=== PATIENT | male | born 1990 | race Caucasian/White ===

== ENCOUNTER 2018-03-03 16:33 | Emergency (ER) | payer SELFPAY ==
[~2018-03-03] VITALS: Ht 167.6 cm; Wt 59.0 kg
[2018-03-03 16:43] VITALS: BP 112/71
--- NOTE | 2018-03-03 17:01 | NUR ---
PT. CAME INTO THE ED DUE TO R SHOULDER PAIN AND BACK PAIN X 4 DAYS. PT. STATES " I WAS AT WORK PULLING HEAVY BOXES AND IT STARTED HURTING MY R SHOULDER DOWN TO MY BACK". 8/10 SHARP PAIN ON R SHOULDER THAT RADIATES DOWN TO HIS BACK. RR EVEN AND UNLABORED. ABLE TO AMBULATE STEADILY. ABLE TO RAISE HANDS BILAT. ER MD NOTIFIED . WILL CONTINUE TO MONITOR. SAFETY PRECAUTIONS IMPLEMENTED.
[2018-03-03] MEDS ORDERED: KETOROLAC 60 MG/2 ML VIAL IM ONE (17:30)
[2018-03-03 18:03] VITALS: BP 116/70
--- NOTE | 2018-03-03 18:03 | NUR ---
Patient discharged with v/s stable. Written and verbal after care instructions given and explained. Patient alert, oriented and verbalized understanding of instructions. Ambulatory with steady gait. All questions addressed prior to discharge. ID band removed. Patient advised to follow up with PMD. Rx of VALIUM, NORCO 5/325, AND MOTRIN 800MG given. Patient educated on indication of medication including possible reaction and side effects. Opportunity to ask questions provided and answered.
== END 2018-03-03 18:03 | disposition home or self-care (01) ==
LOC: MED 16:33
DX: M54.6 Pain in thoracic spine (principal); E78.5 Hyperlipidemia, unspecified
CPT/HCPCS: 81002; 96372; 99283; J1885

== ENCOUNTER 2018-06-02 10:18 | Emergency (ER) | payer SELFPAY ==
[~2018-06-02] VITALS: Ht 167.6 cm; Wt 61.2 kg
[2018-06-02 10:32] VITALS: BP 115/79
--- NOTE | 2018-06-02 10:35 | NUR ---
PT AMBULATES TO BED 11
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
--- NOTE | 2018-06-02 11:44 | NUR ---
Patient being evaluated by physician at bedside.
[2018-06-02] MEDS ORDERED: traMADol 50 MG TAB PO ONE (11:50)
[2018-06-02] MEDS ORDERED: IBUPROFEN 800 MG TAB PO ONE (11:50)
--- NOTE | 2018-06-02 13:00 | NUR ---
PATIENT TAKEN TO XRAY WITH TECH.
--- NOTE | 2018-06-02 13:10 | NUR ---
PATIENT RETURN FROM XRAY.
[2018-06-02 14:16] VITALS: BP 118/75
== END 2018-06-02 14:17 | disposition home or self-care (01) ==
LOC: MED 10:18
DX: S60.042A Contusion of left ring finger without damage to nail, initial encounter (principal); S60.052A Contusion of left little finger without damage to nail, initial encounter; S40.022A Contusion of left upper arm, initial encounter; S20.219A Contusion of unspecified front wall of thorax, initial encounter; Z91.018 Allergy to other foods; V89.2XXA Person injured in unspecified motor-vehicle accident, traffic, initial encounter; Y93.89 Activity, other specified; Y92.89 Other specified places as the place of occurrence of the external cause; Y99.8 Other external cause status
CPT/HCPCS: 71046; 72040; 73130; 99283

== ENCOUNTER 2019-02-09 15:39 | Emergency (ER) | payer SELFPAY ==
[~2019-02-09] VITALS: Ht 165.1 cm; Wt 60.8 kg
[2019-02-09 15:44] VITALS: BP 113/71
--- NOTE | 2019-02-09 16:32 | NUR ---
PT AMBULATED TO ROOM. C/O RT SIDED FACIAL AND ARM NUMBNESS AND TINGLING. NO COMPLAINT OF HEADACHE. TINGLING OCCURRING FOR MONTHS, WORSE TODAY. FACE SYMMETRICAL, NO DIFFICULTY SWALLOWING, TONGUE MIDLINE. PT SITTING IN BED RELAXED. MEDHX: HYPERLIPIDEMIA RX: DENIES
[2019-02-09] MEDS ORDERED: KETOROLAC 15 MG/ML VIAL IVP ONE (17:40)
[2019-02-09] MEDS ORDERED: METOCLOPRAMIDE 10 MG/2 ML INJ VIAL IVP ONE (17:40)
[2019-02-09] MEDS ORDERED: diphenhydrAMINE 50 MG/ML VIAL IVP ONE (17:40)
[2019-02-09 18:29] LABS: BASOPHILS % (AUTO) 0.5 % (0.0-2.0); EOSINOPHILS # (AUTO) 0.1 K/uL (0-0.4); EOSINOPHILS % (AUTO) 2.5 % (0.0-4.0); HEMATOCRIT 46.4 % (36-52); HEMOGLOBIN 15.7 g/dL (12.0-18.0); LYMPHOCYTES # (AUTO) 1.6 K/uL (2.0-11.5); LYMPHOCYTES % (AUTO) 41.3 % (20.5-51.1); MEAN CORPUSCULAR HEMOGLOBIN 30 pg (27-31); MEAN CORPUSCULAR HGB CONC 34 g/dL (33-37); MEAN CORPUSCULAR VOLUME 88.7 fL (80-94); MONOCYTES # (AUTO) 0.3 K/uL (0.8-1.0); MONOCYTES % (AUTO) 6.8 % (1.7-9.3); NEUTROPHILS # (AUTO) 1.9 K/uL (1.8-7.7); NEUTROPHILS % (AUTO) 48.9 % (42.2-75.2); PLATELET COUNT (AUTO) 173 K/uL (140-450); RED BLOOD CELL COUNT(AUTO) 5.23 MIL/uL (4.20-6.10); RED CELL DISTRIBUTION WIDTH 12.8 % (11.6-13.7); WHITE BLOOD COUNT (AUTO) 3.8 K/uL (4.8-10.8)
[2019-02-09 19:11] LABS: ANION GAP 10.2 (8-16); CARBON DIOXIDE 28.6 mmol/L (21-32); CREATININE 0.9 mg/dL (0.7-1.3); POTASSIUM 3.8 mmol/L (3.5-5.1)
--- NOTE | 2019-02-09 19:13 | NUR ---
REPORT GIVEN TO TYRON
--- NOTE | 2019-02-09 19:14 | NUR ---
RECEIVED REPORT FROM MADHU WANG.
--- NOTE | 2019-02-09 19:22 | NUR ---
[facility] ARRIVED FOR CT TRANSPORT AT THIS TIME
--- NOTE | 2019-02-09 19:25 | NUR ---
PT AMBULATES TO [facility] WITH STEADY GAIT AND VSS. PT BEING TRANSFERED TO [facility] FOR [facility] SCAN. WILL WAIT FOR PT TO RETURN.
--- NOTE | 2019-02-09 20:59 | NUR ---
PT RETURNED FROM [place] VIA [facility]SPORT. AMBULATED FROM [facility] TO BED WITH STEADY GAIT.
--- NOTE | 2019-02-09 21:30 | NUR ---
PT RESTING COMFORTABLY IN BED WITH VSS. SKIN PINK, WARM, DRY. BREATHING EVEN, UNLABORED.
[2019-02-09 22:50] VITALS: BP 113/69
--- NOTE | 2019-02-09 22:50 | NUR ---
Patient discharged with v/s stable. Written and verbal after care instructions given and explained. Patient alert, oriented and verbalized understanding of instructions. Ambulatory with steady gait. All questions addressed prior to discharge. ID band removed. Patient advised to follow up with PMD. Rx of Burney and Naproxen given. Patient educated on indication of medication including possible reaction and side effects. Opportunity to ask questions provided and answered.
== END 2019-02-09 22:50 | disposition home or self-care (01) ==
LOC: MED 15:39
DX: R51 Headache (principal); R20.0 Anesthesia of skin; R25.3 Fasciculation; E78.5 Hyperlipidemia, unspecified; Z88.8 Allergy status to other drugs, medicaments and biological substances
CPT/HCPCS: 36415; 71045; 80048; 85025; 93005; 96374; 96375; 99284; J1200; J1885; J2765; Q0092

== ENCOUNTER 2020-02-14 18:55 | Emergency (ER) | payer SELFPAY ==
[~2020-02-14] VITALS: Ht 165.1 cm; Wt 62.6 kg
[2020-02-14 19:09] VITALS: BP 127/67
--- NOTE | 2020-02-14 19:34 | NUR ---
URINE PROVIDED BY PT. GONSALES COMPLETED AND SHOWN TO
--- NOTE | 2020-02-14 19:34 | NUR ---
PT C/O RLQ PAIN WITH URINARY BURNING AND SCANT BRIGHT RED BLOOD IN HIS URINE X 3 DAYS. DENIES N/V/D. DENIES DISCHARGE FROM [facility]. DENIES FLANK PAIN. BED IN LOWEST POSITION AND SIDE RAIL UP X 1. ALLERGY - IV CONTRAST HX - CHOLESTEROL AND HEART MURMUR
--- NOTE | 2020-02-14 19:45 | NUR ---
LABS COLLECTED AND AT BEDSIDE
[2020-02-14] MEDS ORDERED: HYDROcodone/APAP 10/325 MG 1 TAB TAB PO ONE (19:55)
--- NOTE | 2020-02-14 20:00 | NUR ---
LABS COLLECTED BY SCHEDULE HANGER
--- NOTE | 2020-02-14 20:13 | NUR ---
PT STATES PAIN IS NOW 2/10.
[2020-02-14 20:24] LABS: BASOPHILS % (AUTO) 0.3 % (0.0-2.0); EOSINOPHILS # (AUTO) 0.1 K/uL (0-0.4); EOSINOPHILS % (AUTO) 2.3 % (0.0-4.0); HEMATOCRIT 47.8 % (36-52); HEMOGLOBIN 15.7 g/dL (12.0-18.0); LYMPHOCYTES # (AUTO) 1.2 K/uL (2.0-11.5); LYMPHOCYTES % (AUTO) 29.5 % (20.5-51.1); MEAN CORPUSCULAR HEMOGLOBIN 30 pg (27-31); MEAN CORPUSCULAR HGB CONC 33 g/dL (33-37); MEAN CORPUSCULAR VOLUME 91.7 fL (80-94); MONOCYTES # (AUTO) 0.3 K/uL (0.8-1.0); NEUTROPHILS # (AUTO) 2.5 K/uL (1.8-7.7); NEUTROPHILS % (AUTO) 60.9 % (42.2-75.2); PLATELET COUNT (AUTO) 192 K/uL (140-450); RED BLOOD CELL COUNT(AUTO) 5.21 MIL/uL (4.20-6.10); WHITE BLOOD COUNT (AUTO) 4.1 K/uL (4.8-10.8)
[2020-02-14 20:39] LABS: ALBUMIN 4.1 g/dL (3.4-5.0); ANION GAP 15.9 (8-16); CARBON DIOXIDE 26.1 mmol/L (21-32); CREATININE 0.9 mg/dL (0.6-1.3); TOTAL BILIRUBIN 0.9 mg/dL (0.0-1.0)
[2020-02-14 21:59] VITALS: BP 124/70
--- NOTE | 2020-02-14 22:00 | NUR ---
Patient discharged with v/s stable. Written and verbal after care instructions given and explained. Patient alert, oriented and verbalized understanding of instructions. Ambulatory with steady gait. All questions addressed prior to discharge. ID band removed. Patient advised to follow up with PMD. Rx of OMEPRAZOLE given. Patient educated on indication of medication including possible reaction and side effects. Opportunity to ask questions provided and answered.
== END 2020-02-14 22:00 | disposition home or self-care (01) ==
LOC: MED 18:55
DX: R10.31 Right lower quadrant pain (principal); I51.89 Other ill-defined heart diseases; Z91.018 Allergy to other foods; Z87.710 Personal history of (corrected) hypospadias
CPT/HCPCS: 36415; 80053; 81002; 83690; 85025; 99284

== ENCOUNTER 2021-01-26 19:54 | Emergency (ER) | payer SELFPAY ==
[~2021-01-26] VITALS: Ht 162.6 cm; Wt 62.6 kg
[2021-01-26 20:00] VITALS: BP 129/65
--- NOTE | 2021-01-26 20:02 | NUR ---
TO LOBBY A/W BED AMBULATORY
--- NOTE | 2021-01-26 20:22 | NUR ---
SEEN AND EXAMINED BY OSIEL , WITH ORDERS, CARRIED OUT.
[2021-01-26] MEDS ORDERED: KETOROLAC 60 MG/2 ML VIAL IM ONE (20:25)
[2021-01-26 20:30] VITALS: BP 129/65
--- NOTE | 2021-01-26 20:35 | NUR ---
MEDICATED PER ERMDS ORDER, TOLERATED WELL.
[2021-01-26] MEDS ORDERED: MORPHINE SULFATE 4 MG/ML SYR IM ONE (20:40)
[2021-01-26] MEDS ORDERED: IBUP-2213 PO (21:26)
[2021-01-26] MEDS ORDERED: ACET-8386 PO (21:26)
--- NOTE | 2021-01-26 21:45 | NUR ---
Patient discharged with v/s stable. Written and verbal after care instructions given and explained. Patient alert, oriented and verbalized understanding of instructions. Ambulatory with steady gait. All questions addressed prior to discharge. ID band removed. Patient advised to follow up with PMD. Rx of MOTRIN AND NORCO given. Patient educated on indication of medication including possible reaction and side effects. Opportunity to ask questions provided and answered.
== END 2021-01-26 21:45 | disposition home or self-care (01) ==
LOC: MED 19:54
DX: R51.9 Headache, unspecified (principal); R11.2 Nausea with vomiting, unspecified; H57.12 Ocular pain, left eye; I51.9 Heart disease, unspecified; Z91.018 Allergy to other foods
CPT/HCPCS: 96372; 99283; J1885; J2270

== ENCOUNTER 2021-05-21 16:04 | Emergency (ER) | payer SELFPAY ==
[~2021-05-21] VITALS: Ht 162.6 cm; Wt 61.7 kg
[~2021-05-21 16:04] MED LIST: ACET-8386 PO; IBUP-2213 PO
[2021-05-21 16:20] VITALS: BP 124/74
--- NOTE | 2021-05-21 16:30 | NUR ---
gaild assessed pt in triage room at this time
[2021-05-21] MEDS ORDERED: methylPREDNISolone SS 125 MG in WATER STERILE 2 ML IM ONE (16:40)
[2021-05-21] MEDS ORDERED: FAMOTIDINE 20 MG TAB PO ONE (16:40)
[2021-05-21] MEDS ORDERED: PRED20TA5 PO (16:46)
[2021-05-21] MEDS ORDERED: WATER STERILE 0 ML MC ONE (16:49)
[2021-05-21] MEDS ORDERED: methylPREDNISolone SS 125 MG/2 ML VIAL ONE (16:50)
--- NOTE | 2021-05-21 16:59 | NUR ---
31 y/o m bib self from home, states that he was at clinic and started having sob and states his face and body feels itchy. states he didnt touch or eat anything, but is having swelling and itching all over his body. denies n/v/d; skin is pink/warm/dry; aaox4 with even and steady gait lungs clear bl; he even and regular; pt denies any fever, cough, sob, or cp at this time; pt states pain of 0/10 at this time; ermd made aware of pt status. allergies: iv contrast dye, pickle, mustard pmh: heart murmurs med: denies
--- NOTE | 2021-05-21 17:14 | NUR ---
Patient discharged with v/s stable. Written and verbal after care instructions given FOR ANAPHYLACTIC REACTION and explained. Patient alert, oriented and verbalized understanding of instructions. Ambulatory with steady gait. All questions addressed prior to discharge. ID band removed. Patient advised to follow up with PMD. Rx of PREDISONE given. Patient educated on indication of medication including possible reaction and side effects. Opportunity to ask questions provided and answered.
[2021-05-21 17:15] VITALS: BP 120/71
== END 2021-05-21 17:14 | disposition home or self-care (01) ==
LOC: MED 16:04
DX: T78.40XA Allergy, unspecified, initial encounter (principal); Z79.899 Other long term (current) drug therapy; Z91.018 Allergy to other foods; X58.XXXA Exposure to other specified factors, initial encounter
CPT/HCPCS: 96372; 99283; J2930; Q0163

== ENCOUNTER 2022-10-13 11:56 | Emergency (ER) | payer SELFPAY ==
[~2022-10-13] VITALS: Ht 157.5 cm; Wt 70.3 kg
[~2022-10-13 11:56] MED LIST changes: -ACET-8386 PO; +ACET-8905 PO; +PRED20TA5 PO
[2022-10-13 12:09] VITALS: BP 125/78
[2022-10-13] MEDS ORDERED: ALBU0.0912 IH (13:46)
[2022-10-13] MEDS ORDERED: SUD30 PO (13:46)
--- NOTE | 2022-10-13 14:13 | NUR ---
Patient discharged with v/s stable. Written and verbal after care instructions given and explained. Patient alert, oriented and verbalized understanding of instructions. Ambulatory with steady gait. All questions addressed prior to discharge. ID band removed. Patient advised to follow up with PMD. Rx of ALBUTEROL, SUDAFED given. Patient educated on indication of medication including possible reaction and side effects. Opportunity to ask questions provided and answered.
== END 2022-10-13 14:12 | disposition home or self-care (01) ==
LOC: MED 11:56
DX: J06.9 Acute upper respiratory infection, unspecified (principal); Z20.822 Contact with and (suspected) exposure to COVID-19; R07.81 Pleurodynia; Z79.899 Other long term (current) drug therapy; Z79.1 Long term (current) use of non-steroidal anti-inflammatories (NSAID); Z91.018 Allergy to other foods; Z91.041 Radiographic dye allergy status
CPT/HCPCS: 71045; 99284

== ENCOUNTER 2023-07-19 09:02 | Emergency (ER) | payer SELFPAY ==
[~2023-07-19] VITALS: Ht 162.6 cm; Wt 68.9 kg
[~2023-07-19 09:02] MED LIST changes: +ALBU0.0912 IH; +SUD30 PO
[2023-07-19 09:24] VITALS: BP 120/78; PULSE 66; RESP 18; TEMP 98.4; O2SAT 98
[2023-07-19 10:09] VITALS: BP 120/78; PULSE 66; RESP 18; TEMP 98.4
[2023-07-19 10:10] VITALS: O2SAT 98
== END 2023-07-19 10:17 | disposition home or self-care (01) ==
LOC: MED 09:02
DX: M54.50 Low back pain, unspecified (principal); J02.9 Acute pharyngitis, unspecified; R05.9 Cough, unspecified; Z79.899 Other long term (current) drug therapy
CPT/HCPCS: 99283